=== PATIENT | female | born 1990 ===

== ENCOUNTER 2019-06-15 07:45 | Outpatient (CLI) | payer OTHER ==
[~2019-06-15] VITALS: Ht 157.5 cm; Wt 64.4 kg
[2019-06-15] MEDS ORDERED: OMEPRAZOLE40 MG PO (08:52)
[2019-06-15] MEDS ORDERED: ZANTAC300 MG PO (08:52)
== END 2019-06-15 10:15 | disposition home or self-care (01) ==
LOC: OFIC 805 07:45
DX: J37.0 Chronic laryngitis (principal); R49.9 Unspecified voice and resonance disorder; J31.0 Chronic rhinitis; J35.1 Hypertrophy of tonsils; J35.9 Chronic disease of tonsils and adenoids, unspecified